=== PATIENT | female | born 1945 | race Caucasian/White ===

== ENCOUNTER 2020-07-14 02:36 | Emergency (ER) | payer MEDICARE, MEDICAID, SELFPAY ==
[2020-07-14 02:42] VITALS: BP 147/86; PULSE 100; RESP 18; TEMP 36.8; O2SAT 94
--- NOTE | 2020-07-14 02:47 | XRR_ITS ---
PROCEDURE INFORMATION: Exam: XR Right Foot Exam date and time: 07/14/2020 2:48 AM Age: 75 years old Clinical indication: Injury or trauma; Fall; Blunt trauma; Foot; Right TECHNIQUE: Imaging protocol: XR Right foot. Views: 3 or more views. COMPARISON: No relevant prior studies available. FINDINGS: Bones/joints: No fracture or dislocation. There is mild degenerative changes of the IP joints and 1st MTP joint. Other joint spaces are well maintained. Soft tissues: Normal. XR/XR foot RT min 3V* [id number] IMPRESSION: No acute fracture or dislocation.
[2020-07-14] MEDS: oxyCODONE-APAP 10-325 mg Tablet 1 TAB PO (02:52)
--- NOTE | 2020-07-14 03:37 | ED_ITS ---
HPI - Extremity Problem General: Chief complaint: Extremity Injury, Lower Stated complaint: fall/right ankle injury Time Seen by Provider: 07/14/20 02:41 History of Present Illness: HPI Narrative: 75-year-old female who fell in the kitchen while making a sandwich last evening. She experienced some pain. She went to bed, and the pain woke her from sleep. She localizes the pain to the lateral midfoot. There is swelling and bruising there. She is having trouble bearing weight on that side. He did not take anything at home. No icing. MD Complaint: extremity pain and extremity swelling Onset (ago): hour(s) Pain Consistency: constant Location: right and lower extremity (foot) Quality: aching Radiation: proximal Relieving factors: nothing Exacerbating factors: weight bearing Associated symptoms: Deny chest pain or fever(s) Review of Systems Const: Denies: fever(s) Card: Denies: chest pain, palpitations or syncope Physical Exam Resp: COMMON NORMALS: normal respiratory effort, No retractions, No use of accessory muscles and clear to auscultation bilaterally AUSCULTATION: clear to auscultation bilaterally Cardio: COMMON NORMALS: regular rate and regular rhythm RATE: regular rate RHYTHM: regular rhythm Extremity: NARRATIVE EXTREMITY EXAM: Exam of the right lower extremity reveals tenderness, with mild swelling, and mild ecchymosis along the lateral aspect of the midfoot. There is no ankle joint line tenderness. There is no distal fibular or medial malleolar tenderness there is tenderness to the plantar surf kyung of the midfoot. GENERAL: Yes normal exam except as noted Course Vital Signs: Vital signs: Vital Signs Temperature 98.2 F 07/14/20 02:42 Pulse Rate 100 07/14/20 02:42 Respiratory Rate 18 07/14/20 02:42 Blood Pressure 147/86 07/14/20 02:42 Pulse Oximetry 94 07/14/20 02:42 MDM - Extremity (Nontraumatic) MDM Narrative: Medical decision making narrative: X-ray does not reveal a fracture. There is some soft tissue swelling. She will be placed in a postop shoe, and allow limited weightbearing increasing as she improves over the next week or so. Close follow-up for repeat exam and x-ray if needed if hose tender. Bones are osteopenic by x-ray Discharge Plan Discharge Patient Disposition: Home Clinical Impression: Contusion of foot, right Qualifiers: Encounter type: initial encounter Qualified Code(s): S90.31XA - Contusion of right foot, initial encounter Condition: Stable Prescriptions: New Candler 5-325 mg tablet 1 tab PO Q6H Qty: 10 RF: 0 Discharge Orders: Discharge ED (Routine); Ordered 07/14/20 Ordered By: Elias Grayson Referrals: Luci Bradford PA [Primary Care Provider] - Discharge Diet: Usual diet Discharge Activity: Limit activity as instructed Patient Instructions: Foot Contusion (ED), Opioid Safety Activity Restrictions/Additional Instructions: Bear weight as tolerated in the hard soled shoe, follow-up with your doctor in 1 week for repeat exam and possible x-ray. Ice for pain and swelling. Medication as directed if needed for significant pain. Coding Level of Care Code ED Supervisor [employer] for Javier Figueroa
[2020-07-14 03:53] VITALS: BP 156/82; PULSE 89; RESP 18; O2SAT 95
== END 2020-07-14 03:53 | disposition home or self-care (01) ==
PROVIDERS: Emergency Provider Emergency Medicine; PCP Physician Assistant
DX: S90.31XA Contusion of right foot, initial encounter (principal); W19.XXXA Unspecified fall, initial encounter
CPT/HCPCS: 73630; 99283

== ENCOUNTER 2020-08-07 12:30 | Outpatient (CLI) | payer MEDICARE, MEDICAID, SELFPAY ==
--- NOTE | 2020-08-07 12:39 | CT_ITS ---
WS: [id number] LDCT LUNG CANCER SCREENING HISTORY: NICOTINE DEPENDENCE TECHNIQUE: Axial imaging performed from the apices to 1 cm below the costophrenic angles. Coronal and sagittal reformats are submitted with axial MIP series. All CT scans at [facility] use at least one of these dose optimization techniques: automated exposure control; mA and/or kV adjustment per patient size (includes targeted exams where dose is matched to clinical indication); or iterativ e reconstruction. DLP: 56.56 mGy.cm DIvol: 1.58 mGy COMPARISON: None available. Diagnostic quality: Satisfactory Lung Nodules: No pulmonary nodules. There are several micronodules which are less than 3 mm in the pe riphery. No endobronchial lesions. Lungs: Biapical pleural thickening and fibrosis. Paraseptal and centrilobular emphysematous changes. Peripheral areas of reticulation from chronic interstitial lung disease and possible early fibrosis. Subsegmental linear atelectasis or scar RIGHT lower lobe. Marked emphysema. Heart: Normal size heart with moderate coronary artery atherosclerosis. Other findings: Small hiatal hernia. Mild atherosclerosis aorta. Mild curvature thoracic spine with i ncreased kyphosis. CT/CT lung screening [id number] IMPRESSION: LUNG-RADS: 1-Negative FOLLOW UP: 12 Month: Continue annual screening with LDCT OTHER FINDINGS (S MODIFIER): None.
== END 2020-08-07 12:31 | disposition home or self-care (01) ==
PROVIDERS: PCP Physician Assistant; Visit Provider Physician Assistant
DX: Z12.2 Encounter for screening for malignant neoplasm of respiratory organs (principal); F17.210 Nicotine dependence, cigarettes, uncomplicated; K44.9 Diaphragmatic hernia without obstruction or gangrene; I70.0 Atherosclerosis of aorta
CPT/HCPCS: 71271

== ENCOUNTER 2020-09-16 14:02 | Outpatient (CLI) | payer MEDICARE, MEDICAID, SELFPAY | END 2020-09-16 14:03 | disposition home or self-care (01) | LOC: SPT 14:04 | PROVIDERS: PCP Physician Assistant; Visit Provider Podiatrist Foot & Ankle Surgery | DX: Z46.89 Encounter for fitting and adjustment of other specified devices (principal); S93.402D Sprain of unspecified ligament of left ankle, subsequent encounter; X58.XXXD Exposure to other specified factors, subsequent encounter | CPT/HCPCS: 97760; L1902 ==

== ENCOUNTER 2021-03-19 13:34 | Outpatient (CLI) | payer MEDICARE, MEDICAID, SELFPAY ==
--- NOTE | 2021-03-19 13:46 | MM_ITS ---
WS: [id number] BILATERAL SCREENING DIGITAL MAMMOGRAM WITH CAD HISTORY: SCREENING COMPARISON: None available. Bilateral CC and MLO views submitted. Computer aided detection analyzed. Breast composition: There are scattered areas of fibroglandular density. No suspicious masses, microc alcifications or architectural distortion. MM/[place] [id number] IMPRESSION: BI-RADS: 1-Negative FOLLOW UP: 1 Year Follow-up
--- NOTE | 2021-03-19 14:35 | XR_ITS ---
WS: [id number] SCREENING DEXA SCAN [facility] CLINICAL INFORMATION: POST MENOPAUSAL COMPARISON: None. FINDINGS: The L1-L4 bone mineral density measures 0.956 g/cm2. This corresponds to a T score score of -1.9 and Z score of 0.2. Left femoral neck bone mineral density measures 0.703 g/cm2. This corresponds to a T score of -2.4 an d Z score of -0.5. Right femoral neck bone mineral density measures 0.656 g/cm2. This corresponds to a T score -2.8of an d Z score of -0.9. Mean femoral neck bone mineral density measures 0.680 g/cm2. This corresponds to a T score of -2.6 an d Z score of -0.7. XR/XR DEXA axial skeleton* [id number] IMPRESSION: Osteoporosis femoral necks. Osteopenia lumbar spine. Patient's FRAX calculated 10 year probability for major osteoporotic fracture i s 57.3 % and osteoporotic hip fracture is 47.7%.
== END 2021-03-19 13:35 | disposition home or self-care (01) ==
LOC: RADSHAW 13:41
PROVIDERS: PCP Physician Assistant; Visit Provider Physician Assistant
DX: Z12.31 Encounter for screening mammogram for malignant neoplasm of breast (principal); Z78.0 Asymptomatic menopausal state; M81.0 Age-related osteoporosis without current pathological fracture; M85.88 Other specified disorders of bone density and structure, other site
CPT/HCPCS: 77067; 77080